=== PATIENT | female | born 1955 | race Caucasian/White ===

== ENCOUNTER 2018-03-31 21:30 | Emergency (ER) | payer MEDICARE, OTHER ==
[2018-03-31 21:45] VITALS: BP 158/83; PULSE 63; RESP 16; TEMP 98.5
--- NOTE | 2018-03-31 22:09 | XR ---
EXAMINATION TYPE: XR wrist limited RT DATE OF EXAM: 03/31/2018 COMPARISON: NONE HISTORY: Pain TECHNIQUE: 2 views FINDINGS: Carpal bones appear intact. I see no fracture nor dislocation. There are no erosions. Metac arpals appear intact. IMPRESSION: No acute abnormality of the right wrist.
--- NOTE | 2018-03-31 22:09 | XR ---
EXAMINATION TYPE: XR forearm RT DATE OF EXAM: 03/31/2018 COMPARISON: NONE HISTORY: Pain TECHNIQUE: 2 views FINDINGS: There is a 5 mm slightly impacted fracture of the lateral aspect of the radial head. There is no dislocation. There is elbow joint effusion. This joint is intact. IMPRESSION: Intra-articular radial head Chip fracture.
--- NOTE | 2018-03-31 22:13 | ED ---
Upper Extremity HPI - General Chief Complaint: Extremity Injury, Upper Stated Complaint: Arm injury Time Seen by Provider: 03/31/18 21:47 Source: patient Mode of arrival: ambulatory Limitations: no limitations - History of Present Illness Initial Comments: Milla is a 62-year-old female presents the emergency department today for evaluation of right forearm pain after fall. Patient reports she was walking when she tripped, she put her arm out independent position and landed on her forearm. She reports pain in her forearm since that time. Patient has full ROM of her fingers, wrist and elbow. - Related Data Allergies Allergy/AdvReac Type Severity Reaction Status Date / Time Penicillins Allergy Unknown Verified 03/31/18 21:45 Review of Systems ROS Statement: Those systems with pertinent positive or pertinent negative responses have been documented in the HPI. ROS Other: All systems not noted in ROS Statement are negative. Past Medical History Additional Past Medical History / Comment(s): back problems, leg problems History of Any Multi-Drug Resistant Organisms: None Reported Past Surgical History: No Surgical Hx Reported Past Psychological History: No Psychological Hx Reported Smoking Status: Never smoker Past Alcohol Use History: Occasional Past Drug Use History: None Reported General Exam - General Exam Comments Initial Comments: Physical Exam GENERAL: Patient is well-developed and well-nourished. Patient is nontoxic and well-hydrated and is in no distress. HENT: Normocephalic, Atraumatic. EYES: PERRL, EOMI PULMONARY: Unlabored respirations. CARDIOVASCULAR: RRR ABDOMEN: Non-distended SKIN: Skin is clear with no lesions or rashes and otherwise unremarkable. : Deferred NEUROLOGIC: Patient is alert and oriented x3. Moving all extremities spontaneously MUSCULOSKELETAL: Normal extremities with adequate strength and full range of motion. No lower extremity swelling or edema. No calf tenderness. Pain to palpation of soft tissues of forearm, no obvious contusion or hematoma PSYCHIATRIC: Normal psychiatric evaluation. Limitations: no limitations Limitations: no limitations Course Vital Signs 03/31/18 21:42 Temperature 98.5 F Pulse Rate 63 Respiratory 16 Rate Blood Pressure 158/83 O2 Sat by Pulse 98 Oximetry Procedures - Orthopedic Splinting/Casting Injury #1 Side: right Upper Extremity Injury Location: elbow Upper Extremity Immobilizer: posterior splint, synthetic pre-padded splint Medical Decision Making - Medical Decision Making Patient was seen and evaluated x-rays were obtained x-ray revealed a radial chip fracture, patient has full range of motion of the elbow, no limitation of pronation or supination Patient was placed in a posterior mold splint for support Patient [facility] will follow up with them next week for reevaluation Return parameters discussed all questions pertaining to care were answered patient was discharged home in stable condition Disposition Clinical Impression: Radial head fracture, closed Disposition: HOME SELF-CARE Condition: Good Instructions: Arm Fracture in Adults (ED) Is patient prescribed a controlled substance at d/c from ED?: No Referrals: Miah Jasso DO [Primary Care Provider] - 1-2 days [facility] [Provider Group] - 1-2 days Time of Disposition: 22:30
== END 2018-03-31 22:54 | disposition home or self-care (01) ==
LOC: EC 21:30
DX: S52.121A Displaced fracture of head of right radius, initial encounter for closed fracture (principal); Z88.0 Allergy status to penicillin; W01.0XXA Fall on same level from slipping, tripping and stumbling without subsequent striking against object, initial encounter; Y92.89 Other specified places as the place of occurrence of the external cause; Y93.01 Activity, walking, marching and hiking
CPT/HCPCS: 29105; 29125; 99283

== ENCOUNTER → 2019-12-26 | Outpatient (CLI) | payer MEDICARE ==
[2019-12-26 12:20] VITALS: BP 169/92; PULSE 63; RESP 18
--- NOTE | 2019-12-26 12:53 | P.GSHP ---
History of Present Illness H&P Date: 12/26/19 Chief Complaint: Abnormal left breast ultrasound Leticia is a 64-year-old white female seen in consultation for Dr. Jasso who [place] [address]. A small nodular asymmetry in the superior left breast anterior to medial duct was noted. Nothing of concern was noted in the right breast A diagnostic left breast mammogram was performed on 7920, which did not reveal a definite mass. An ultrasound was then recommended. This was performed and 7920 as well a 0.6 x 0.8 cm circumscribed oval mass was identified in the 2 o'clock position of the left breast. Ultrasound-guided core biopsy was recommended. The patient denies any pain masses nipple just charge or changes in either breast. She has not had any recent history of trauma or infection in the breast. Caffeine: 8 ounces of pop per day Nicotine:none Theophylline Seldom hormones: Negative Family history: mother: colon cancer sister: breast cancer both removed, at the age of 50 Hormonal History: menarche: 10 , age at first 17, breast fed: yes menopause: 40 BCP: none hormones: none Surgical history: Tubal ligation Medical history: Negative Social history: Smoke: Negative Alcohol: Negative Drugs: Negative - Constitutional Constitutional: Denies chills, Denies fever - EENT Eyes: denies blurred vision, denies pain Ears: deny: decreased hearing, tinnitus Ears, nose, mouth and throat: Denies headache, Denies sore throat - Breasts Breasts: bilateral: as per HPI - Cardiovascular Cardiovascular: Denies chest pain, Denies shortness of breath - Respiratory Respiratory: Denies cough, Denies 7 - Gastrointestinal Gastrointestinal: Denies abdominal pain, Denies diarrhea, Denies nausea, Denies vomiting - Genitourinary (Female) Genitourinary: Denies dysuria, Denies hematuria - Menstruation Menstruation: Reports postmenopausal - Musculoskeletal Comment: arthritis, lower extremities arthritis lower back - Integumentary Integumentary: Denies pruritus, Denies rash - Neurological Neurological: Denies numbness, Denies weakness - Psychiatric Psychiatric: Reports anxiety, Reports depression - Endocrine Endocrine: Denies fatigue, Denies weight change - Hematologic/Lymphatic Comment: none - Allergic/Immunologic Allergic/Immunologic: Reports as per HPI Past Medical History Additional Past Medical History / Comment(s): BACK PAIN, STATES TOLD ANEMIA AND STARTED ON VITAMIN B-12., History of Any Multi-Drug Resistant Organisms: None Reported Past Surgical History: Tubal Ligation Additional Past Surgical History / Comment(s): COLONOSCOPIES. Past Anesthesia/Blood Transfusion Reactions: No Reported Reaction, Family History of Problems w/ Anesthesia Additional Past Anesthesia/Blood Transfusion Reaction / Comment(s): SISTER=PONV Past Psychological History: Anxiety, Depression Smoking Status: Never smoker Past Alcohol Use History: Occasional Past Drug Use History: None Reported - Past Family History Mother Family Medical History: Cancer Additional Family Medical History / Comment(s): COLON CANCER Sister(s) Family Medical History: Cancer Additional Family Medical History / Comment(s): BREAST CANCER Medications and Allergies Home Medications Medication Instructions Recorded Confirmed Type ALPRAZolam [Xanax] 0.25 mg PO DAILY PRN 09/28/18 12/26/19 History Acetaminophen [Tylenol] 500 mg PO Q4-6H PRN 09/28/18 12/26/19 History HYDROcodone/APAP 5-325MG [Prim 1 tab PO DAILY PRN 09/28/18 12/26/19 History 5-325] Sertraline HCl [Zoloft] 100 mg PO DAILY 09/28/18 12/26/19 History Allergies Allergy/AdvReac Type Severity Reaction Status Date / Time Penicillins Allergy Rash/Hives, Verified 09/28/18 15:17 Vomited cigarette smoke AdvReac Unknown Dyspnea Verified 09/28/18 15:36 Surgical - Exam Vital Signs Pulse Resp BP Pulse Ox 63 18 169/92 97 12/26/19 12:17 12/26/19 12:17 12/26/19 12:17 12/26/19 12:17 BMI 40.6 - General obese - Eyes normal ocular movement - ENT no hearing loss, no congestion - Neck trachea midline - Respiratory normal respiratory effort, clear to auscultation - Cardiovascular Rhythm: regular Heart Sounds: normal: S1, S2 - Abdomen normal bowel sounds Abdomen: soft - Integumentary normal turgor - Neurologic no disoriented, no combative - Musculoskeletal normal gait - Psychiatric oriented to time, oriented to person, oriented to place, speech is normal, memor y intact breast exam: BRA: 42DD inspection: 3 ptosis bilateral, fungal infection under both breasts Palpation: Right breast: Multi-positional exam no dominant masses or nodules of concern fibrocystic changes Right axilla: No adenopathy of concern Left breast: Multi-positional exam fibrocystic changes Left axilla: No adenopathy of concern Results Mammogram and ultrasound results reviewed Assessment and Plan Assessment: Impression: 1. Fibrocystic breast changes 2. Ultrasound abnormality left breast 3. Fungal infection under both breasts Plan: 1. Nystatin powder underwent under the breast 2. Ultrasound-guided core biopsy of the left breast 3. Follow-up after ultrasound-guided core biopsy of the left breast CC: Dr. Jasso Risks and benefits of the procedure were discussed with the patient. She understands and wishes to proceed. She understands that if the lesion is not concordant that we may recommend needle local excision in the operating room. encounter 25 minutes, > 50% of time in planning and consultation
== END | disposition home or self-care (01) ==
LOC: WWCWWP 12:01
PROVIDERS: ATTEND Surgery
DX: Z53.9 Procedure and treatment not carried out, unspecified reason (principal)

== ENCOUNTER → 2020-01-09 | Day surgery (SDC) | payer MEDICARE ==
[2020-01-09 12:31] VITALS: PULSE 67; RESP 16; TEMP 98
--- NOTE | 2020-01-09 13:42 | USB ---
EXAMINATION TYPE: US biopsy breast VAD LT, MG diagnostic mammo LT wo CAD DATE OF EXAM: 01/09/2020 CLINICAL HISTORY: R92.8 Abnormal Mammogram. Abnormal outside ultrasound. TECHNIQUE: Ultrasound guided core biopsy of left breast with clip placement and diagnostic two-view mammogram. COMPARISON: Prior outside mammogram and ultrasound October 24, 2019 FINDINGS: The procedure of ultrasound guided core biopsy was explained to the patient. Benefits, alternatives, and risks were discussed. An informed consent was then obtained. The patient was placed in supine positioning for imaging and for the procedure. Preprocedure imaging shows isoechoic to slightly hypoechoic 6 x 4 mm area 3:00 position zone A left breast stable or slightly smaller from outside study. The overlying skin was prepped and draped in usual sterile fashion. Lidocaine is used as anesthetic into the skin and subcutaneous tissue PA lidocaine is used as anesthetic into the deeper tissue up to area of concern in the left breast. Under ultrasound guidance, a vacuum assisted biopsy gun device was used to obtain 2 core samples. Following this, a biopsy clip was left in lesion. Lesion not as not well seen after sampling. The patient tolerated the procedure well without any immediate complication. The patient was kept in the radiology department for short stay after the procedure and then discharged home in stable condition. Postprocedure mammogram shows successful deployment of clip, area is more anterior to the diagnostic workup. IMPRESSION: Successful, uncomplicated ultrasound guided core biopsy of area of concern in the left breast, full pathology results to follow. Low index of suspicion noted at time of procedure. Pathology Results: Benign LEFT BREAST, THREE O'CLOCK, ULTRASOUND GUIDED CORE BIOPSY: Fibroadenoma/fibroadenomatoid hyperplasia and background fibrocystic changes. Recommendation Follow up ultrasound of the left breast in 6 months. ZULEMA
[2020-01-09 13:57] VITALS: BP 138/83
== END ==
LOC: RADUSWWP 10:21
PROVIDERS: ATTEND Surgery
DX: D24.2 Benign neoplasm of left breast (principal)
CPT/HCPCS: 88305; 77065; 19083; A4648; J2001

== ENCOUNTER → 2020-01-17 | Outpatient (CLI) | payer MEDICARE ==
[2020-01-17 09:40] VITALS: BP 134/87; PULSE 61; RESP 16; TEMP 98.2
--- NOTE | 2020-01-17 09:47 | P.PN ---
Subjective Progress Note Date: 01/17/20 Principal diagnosis: Fibroadenoma left breast Milla is a 64-year-old white female status post ultrasound-guided core biopsy of [place] [id number]. Pathology is consistent with fibroadenoma/fibroadenomatoid hyperplasia. This is felt to be concordant. The patient tolerated the procedure without difficulty. Objective - Vital Signs Vital signs: Vital Signs Temp 98.2 F 01/17/20 09:28 Pulse 61 01/17/20 09:28 Resp 16 01/17/20 09:28 BP 134/87 01/17/20 09:28 Pulse Ox 97 01/17/20 09:28 Intake & Output 01/16/20 01/17/20 01/17/20 18:59 06:59 18:59 Weight 102.512 kg - Constitutional General appearance: Present: obese - EENT Eyes: Present: EOMI ENT: Present: hearing grossly normal - Respiratory Respiratory: bilateral: CTA - Cardiovascular Rhythm: regular Heart sounds: normal: S1, S2 - Integumentary Integumentary Comment(s): Biopsy site left breast clean and dry, no evidence of infection, no evidence of hematoma - Psychiatric Psychiatric: Present: A&O x's 3, appropriate affect, intact judgment & insight Assessment and Plan Assessment: Impression: 1. Fibroadenoma left breast 2 o'clock position appears to be concordant with ultrasound findings Plan: 1. Repeat left breast mammogram and ultrasound in 6 months with a physician exam at that time CC: DR. Jasso encounter 15 minutes, > 50% of time in planning and counselling
== END | disposition home or self-care (01) ==
LOC: WWCWWP 09:23
PROVIDERS: ATTEND Surgery
DX: Z53.9 Procedure and treatment not carried out, unspecified reason (principal)